=== PATIENT | female | born 1970 | race Caucasian/White ===

== ENCOUNTER 2024-07-31 10:50 | Outpatient (AMB) | payer MEDICARE, MEDICAID, SELFPAY ==
--- NOTE | 2024-07-31 10:57 | MHC.PC.OV ---
Vital Signs 07/31/24 11:34 Height 5 ft 3 in Weight 147 lb 2 oz BMI 26.1 BP 100/56 L Blood Pressure Location Rt brachial Position Sitting Respiration 16 Pulse 82 Pulse Source Pulse Oximeter Temp 98.3 F Temp Source Oral Pulse Oximetry (%) 97 Oxygen Delivery Method Room Air Intake Visit Reasons: medications, SHIPPING CLERK/ADMIN Intake Note: patient here for new patient visit Call Center Agent Required: No Is last menstrual period known: No Post menopausal: No Patient : No Allergies ibuprofen Allergy (Severe, Verified 07/31/24 11:50) Anaphylaxis tramadol [From Ultram] Allergy (Severe, Verified 07/31/24 11:50) Anaphylaxis vancomicyn Allergy (Intermediate, Uncoded 07/31/24 11:50) Anaphylaxis Medication List - Last Reviewed 07/31/24 by Carol Santoyo MA albuterol sulfate 90 mcg/actuation 2 puffs inhalation Q6H PRN aspirin 81 mg PO DAILY atorvastatin 40 mg PO DAILY cholecalciferol (vitamin D3) 5,000 mcg PO ONCE coenzyme Q10 (CoQ-10) 200 mg PO DAILY erenumab-aooe (Aimovig Autoinjector) 140 mg subcut fluoxetine (Prozac) 20 mg PO DAILY gabapentin 100 mg PO BID melatonin 10 mg PO BEDTIME PRN ondansetron 4 mg PO .prn tirzepatide (Mounjaro) 2.5 mg subcut QWEEK Tobacco use date assessed: 07/31/24 Dental Screening Dental Screen Date: 07/31/24 Did you have a dental visit in the last 12 months?: No Did you have a dental problem in the last 6 months where you did not have access to dental care?: No Was dental information given to patient?: No (no teeth) HPI HPI Comments History of Present Illness Details 54-year-old female, accompanied by her , presents to [facility]. She admits to taking her medications as prescribed without adverse reactions. However, she ran out of fluoxetine and varylar a month ago. Prior PCP? - [facility] Last office visit/CPE/labs - 2 monhs ago. She requests new blood work as recent labs not available and having difficulty tracing results Acute issue(s) -She reports anxiety and depressive symptoms which has been ongoing for the past 2 weeks. She attributes her symptoms to her father recently been on hospice and her cat dying recently. She reports passive SI. She ran out of fluoxetine and varylar a month ago. She is followed by a therapist weekly. She has the contact information for crisis. Past Medical History - Asthma, prediabetes, POTS, fibromyalgia, arthritis multiple joints, astigmatism, myopia, hyperopia, cataract, vitamin d deficiency, HLD, IBS, alcoholism, anxiety, depression, bipolar 1 disorder Surgical History - Appendectomy, cholecystectomy, right knee surgery, partial hysterectomy (no cervix) Family History - Dad: Asthma, cardiovascular disease, diabetes, alcohol abuse, substance abuse - PGM: Diabetes - MGF: Alcohol abuse Social History - Nonsmoker. Does not vape. Does not drink alcohol, sober for almost 7 years. Denies recreational drug use. - Has been making healthy dietary choices. Not active and does not exercise. Difficulty falling asleep and maintaining sleep - attributes to fibromyalgia, melatonin helps for sleep and gabapentin helps for fibromyalgia. Health maintenance - Last eye exam was with [facility] a year ago. She will schedule a follow up for eye exam. She will sign a release for her PCP to obtain her ophthalmology record - Last dental visit was over 20-30 years ago; encouraged to schedule an appointment with his dentist for routine dental care. - Last tetanus vaccine was 2 years ago. Record not currently available - Has not been vaccinated for the flu this season; declines vaccination - Last pap smear test was a year ago with former PCP: normal. Record not currently available. Would not continue to have pap smear test due to partial hysterectomy - Last mammogram was 6 months at [facility]: Has a follow up mammogram and ultrasound in 08/17/2024 - She has never had a colonoscopy. Requests referral for a colonoscopy at [facility] OP therapist [facility] Medical History (Updated 07/31/24 @ 14:36 by Tom Elliott CNP) Alcoholism Bipolar 1 disorder Depression Anxiety IBS (irritable bowel syndrome) Arthritis POTS (postural orthostatic tachycardia syndrome) Asthma Surgical History (Updated 07/31/24 @ 11:18 by Carol Santoyo MA) Hx of appendectomy History of cholecystectomy History of left knee surgery Family History (Updated 07/31/24 @ 11:34 by Carol Santoyo MA) Father Asthma Diabetes Cardiovascular disease Alcohol abuse FH: mental illness Substance abuse Paternal Grandmother Diabetes Maternal Grandfather Alcohol abuse Social History (Updated 07/31/24 @ 11:34 by Carol Santoyo MA) Housing: Other (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 1. Little interest or pleasure in doing things: more than half the days 2. Feeling down, depressed, or hopeless: more than half the days 3. Trouble falling or staying asleep, or sleeping too much: several days 4. Feeling tired or having little energy: several days 5. Poor appetite or overeating: more than half the days 6. Feeling bad about yourself - or that you are a failure or have let yourself or your family down: several days 7. Trouble concentrating on things, such as reading the newspaper or watching television: more than half the days 8. Moving or speaking so slowly that other people could have noticed. Or the opposite - being so fidgety or restless that you have been moving around a lot more than usual: several days 9. Thoughts that you would be better off or of hurting yourself in some way: several days Total score: 13 Depression Screening Interpretation: Positive Depression Screening Follow-up: Existing condition and In treatment Depression Screening Done: Yes 66808 - PHQ-9 Billing: Yes Source: Developed by Drs. Rg Ge, Kanchan Talbert, Chris Schuler and colleagues, with an educational usha from [employer]. Thrive Questionnaire Date Thrive assessed: 07/31/24 I am a: Patient What is your living situation today?: I have a steady place to live Within the past 12 months, did the food you bought not last and you didn't have the money to get more?: Never true Within the past 12 months, did you worry whether your food would run out before you got money to buy more?: Never true Do you have trouble paying for medicines?: No Do you have trouble getting transportation to medical appointments?: No Do you have trouble paying your heating and electricity bill?: No Do you have trouble taking care of your child, family member or friend?: No Do you have trouble with day-to-day activities such as bathing, preparing meals, shopping, managing finances, etc.?: No Are you currently unemployed and looking for a job?: No Are you interested in more education?: No Please select the resources that you would like help with: None Currently or been in a relationship where the following occur: No concerns reported THRIVE Score: 0 AUDIT C Alcohol Use Questionnaire (AUDIT-C) 1. How often do you have a drink containing alcohol?: Never 3. How often do you have six or more drinks on one occasion?: Never Total Score: 0 Score Reviewed/Action Taken: Yes DAYAN-7 AMB Questionnaire DAYAN-7 Date DAYAN - 7 assessed: 07/31/24 Feeling nervous, anxious, or on edge: 1 = Several days Not being able to stop or control worryin = Several days Worrying too much about different things: 1 = Several days Trouble relaxin = Several days Being so restless that it is hard to sit still: 1 = Several days Becoming easily annoyed or irritable: 0 = Not at all Feeling afraid as if something awful might happen: 1 = Several days Total DAYAN-7 score (0-4 normal; 5-9 mild; 10-14 moderate; 15-21 severe): 6 Source: Developed by Drs. Rg Ge, Kanchan Talbert, Chris Schuler and colleagues, with an educational usha from [employer]. DAYAN-7 Assessment Billing DAYAN-7 Assessment Tool: DAYAN-7 Assessment 40437 ACT Questionnaire In the past 4 weeks, how much of the time did your asthma keep you from getting as much done at work, school or at home?: None of the time During the past 4 weeks, how often have you had shortness of breath?: Not at all During the past 4 weeks, how often did your asthma symptoms wake you up at night or earlier than usual in the morning?: Not at all During the past 4 weeks, how often have you had to use your rescue inhaler or nebulizer medication?: Not at all How would you rate your asthma control during the past 4 weeks?: Completely controlled ACT Interpretation: Negative Score: 25 Review of Systems Const Details: Const Denies chills, Denies fatigue, Denies fever(s), Denies headache(s) and Denies weakness ENT Denies dizziness and Denies headache(s) Card Denies chest pain, Denies lightheadedness, Denies dyspnea and Denies other (Palpitations) Resp Denies cough, Denies dyspnea, Denies wheezing and Denies other ( shortness of breath) GI Denies abdominal pain, Denies melena, Denies hematochezia, Denies change in bowel habits, Denies dyspepsia and Denies nausea Denies hematuria and Denies dysuria Musc Reports generalized pain, Denies abnormal gait, Denies numbness and Denies tingling Skin/Breast Denies rash, Denies unusual bruising and Denies wounds Neuro Denies abnormal gait, Denies dizziness, Denies headache(s), Denies memory loss, Denies numbness, Denies Sensory deficit (Neuro), Denies tingling and Denies weakness Psych Reports anxiety, Reports depression, Denies memory loss Endo Denies cold intolerance, Denies fatigue, Denies heat intolerance, Denies polydipsia and Denies polyuria Aller/Immun Denies wheezing Physical exam (Primary Care) Vital Signs: Last Vital Signs Temp 98.3 F 07/31/24 11:34 Pulse 82 07/31/24 11:34 Resp 16 07/31/24 11:34 BP 100/56 L 07/31/24 11:34 Pulse Ox 97 07/31/24 11:34 Oxygen Delivery Method Room Air 07/31/24 11:34 BMI result Body Mass Index 26.1 Tobacco/Smoking Status: Tobacco use Status Tobacco use date assessed 07/31/24 07/31/24 11:38 Patient Tobacco Use Status Never used Tobacco 07/31/24 11:38 e-Cigarette/Vaping Use Never Used 07/31/24 11:38 PHQ-9: PHQ-9 Score PHQ-9: Total score 13 07/31/24 12:51 Depression Screening Interpretation: Positive Depression Screening Follow-up: Existing condition and In treatment Thrive Assessment: Date of Thrive Assessment Date Thrive assessed 07/31/24 07/31/24 10:59 Currently or been in a relationship where the following occur: No concerns reported Const Other: General: no acute distress and well developed Nutritional Appearance: well nourished Orientation/consciousness: patient oriented x3 HENMT Head: Yes normocephalic and Yes atraumatic mouth: Edentulous (wears upper denture) Eyes General: appearance normal, both eyes and all related structures Pupils: Equal, round and reactive pupils present EOM: EOMs intact bilaterally Resp Effort & Inspection: normal respiratory effort Auscultation: clear to auscultation bilaterally Cardio Rate: regular rate Rhythm: regular rhythm Heart sounds: S1 normal heart sound present, S2 normal heart sound present, no gallops, no murmurs and no rubs GI Palpation (GI): No Abdominal aortic bruit present, Soft to palpation, nontender, No hepatosplenomegaly present and No Rebound tenderness present Auscultation: normal bowel sounds General: Yes no CVA tenderness Back/Spine/Pelvis Back: no CVA tenderness Cervical Spine: cervical ROM normal and No Cervical spine tenderness Thoracic/Lumbar Spine: thoraco-lumbar ROM normal, No pain with thoraco-lumbar ROM, No thoracic spinal tenderness and No lumbar spinal tenderness Extrem General: Yes normal to inspection, No edema and No calf tenderness Skin General: warm and dry. Normal skin color. Normal skin turgor Lesions: no lesions Rashes: no rashes Trauma: no lacerations or abrasions Wounds: no wounds Nails: normal Neuro General: patient oriented x3, gait normal and no focal neuro deficit Cranial nerves: Yes Equal, round and reactive pupils present Cognition (Neuro): normal cognition Gait exam (Neuro): Normal gait present Sensory Exam: No Sensory deficit (Neuro) Psych Appearance: grossly normal Affect: Blunted affect Attitude: cooperative Thought process: Normal thought process present Coding Level of Care Code New Pt Level 4 (12240) Diagnoses Asthma J45.909 Anxiety F41.9 Depression F32.A Bipolar 1 disorder F31.9 Prediabetes R73.03 Colon cancer screening Z12.11 Sleep disturbance G47.9 Fibromyalgia M79.7 Laboratory tests ordered as part of a complete physical exam (CPE) Z00.00 Additional Codes Asthma Control Questionnaire - ACT Interpretation: Negative ([id number]) DAYAN-7 Assessment Billing - DAYAN-7 Assessment Tool: DAYAN-7 Assessment 65120 ([id number]) PHQ-9 - 29401 - PHQ-9 Billing: Yes ([id number]) Time Spent (min) 75 Assessment & Plan Assessment & Plan (1) Asthma: Code(s): J45.909 - Unspecified asthma, uncomplicated Category: Medical Plan: Controlled. Continue current treatment regimen. (2) Anxiety: Code(s): F41.9 - Anxiety disorder, unspecified Category: Medical Plan: She reports anxiety and depressive symptoms which has been ongoing for the past 2 weeks. She attributes her symptoms to her father recently been on hospice and her cat dying recently. She reports passive SI. She ran out of fluoxetine and varylar a month ago. She is followed by a therapist weekly. She has the contact information for crisis. Affect is blunted. PHQ-9 and DAYAN-7 scores revealed moderate depression and mild anxiety respectively. The MA called the pharmacy and reconciled the patient's medications. She was informed that the last time patient's picked up 30 day supply of Varylar 3 mg daily was in May 2024 with no refill and Prozac 20 mg daily was last picked up in February 2024, 90 day supply with no refill. Fluoxetine 20 mg daily ordered; advised to take as prescribed. Instructed on the risks, benefits, and potential adverse reactions of the medication. Routine exercise encouraged. Follow-up in 2 weeks or sooner with worsening or new symptoms. Verbalized understanding and agreed with treatment plan. (3) Depression: Code(s): F32.A - Depression, unspecified Category: Medical Plan: Plan as above. (4) Bipolar 1 disorder: Code(s): F31.9 - Bipolar disorder, unspecified Category: Medical Plan: Plan as above. (5) Prediabetes: Code(s): R73.03 - Prediabetes Category: Medical Plan: She notes that she is on Mounjaro 2.5 mg weekly The MA verified from the pharmacy that the patient last picked up 28 day supply of Mounjaro 2.5 mg weekly in April 2024. Will discontinue Mounjaro. Will check A1c and make changes as needed. Healthy diet, including low carbs encouraged. Follow-up as planned. Verbalized understanding and agreed with the plan. (6) Colon cancer screening: Code(s): Z12.11 - Encounter for screening for malignant neoplasm of colon Category: Medical Plan: She has never had a colonoscopy. Request referral for a colonoscopy to [facility]; referral sent. (7) Sleep disturbance: Code(s): G47.9 - Sleep disorder, unspecified Category: Medical Plan: Difficulty falling asleep and maintaining sleep - attributes to fibromyalgia, melatonin helps for sleep and gabapentin helps for fibromyalgia. Denies snoring. Instructed on sleep hygiene. Continue current treatment regimen. Follow-up with worsening or new symptoms. Verbalized understanding and agreed with the plan. (8) Fibromyalgia: Code(s): M79.7 - Fibromyalgia Category: Medical Plan: Reports generalized pain. Gabapentin as prescribed. Follow-up with worsening or new symptoms. Verbalized understanding and agreed with the plan. (9) Laboratory tests ordered as part of a complete physical exam (CPE): Code(s): Z00.00 - Encounter for general adult medical examination without abnormal findings Category: Medical Plan: Fasting labs ordered as part of a complete physical exam. Advised to fast for at least 10 hours before getting labs drawn. May drink water Verbalized understanding and agreed with treatment plan. Plan Total time for this visit was 75 minutes. This include 55 minutes with patients doing physical exam and chronic disease management/treatment, and 20 minutes reviewing, coordinating plan of care, and documenting. Orders: Orders Lipid Panel 07/31/24 Z.00 - Encounter for general adult medical examination without abnormal findings Microalbumin, Random (w Creat) 07/31/24 Z.00 - Encounter for general adult medical examination without abnormal findings Complete Blood Count Auto Diff 07/31/24 Z00.00 - Encounter for general adult medical examination without abnormal findings Comprehensive Allred. Panel Fast 07/31/24 Z00.00 - Encounter for general adult medical examination without abnormal findings TSH reflex Free T4 07/31/24 Z00.00 - Encounter for general adult medical examination without abnormal findings UA CC w/rflx Micro + Cult 07/31/24 Z. - Encounter for general adult medical examination without abnormal findings Vitamin D 25-OH Total 07/31/24 Z00.00 - Encounter for general adult medical examination without abnormal findings Hemoglobin A1c 07/31/24 R73.03 - Prediabetes Referrals Gastroenterology Referral Z12.11 - Encounter for screening for malignant neoplasm of colon Medications: New fluoxetine (Prozac) 20 mg PO DAILY 30 days 30 caps 3RF gabapentin 100 mg PO BID 30 days 60 caps 3RF
[2024-07-31 11:34] VITALS: BP 100/56; PULSE 82; RESP 16; TEMP 36.8; O2SAT 97; BMI 26.1
--- OUTSIDE RECORDS SUMMARY | 2024-07-31 12:20 | XMS_ITS | Data Portability ---
Author Organization [facility], [facility] Address [address] [place] [address] Assessment No assessment recorded. Plan of Treatment Reminders Order Date Submit Date Provider Last Modified By Organization Details Last Modified Time Details Appointments None record ed. Lab None record ed. Referral None record ed. Procedures None record ed. Surgeries None record ed. Imaging None record ed. Medication Orders None record ed. Patient TargetsNo targets recorded. Patient InstructionsNo instructions recorded. Reason for Referral None Reported. Results Created Date Observation Date Name Description Value Unit Range Abnormal Flag Note LastModifiedBy Organization Detail LastModifiedTime Result Notes None recorded. Procedures Surgical History Date Name Laterality Status Provider Name and Address Organization Details Recorded Time 5 Ryan - Colonoscopy completed Daniel Davis MD [address] [place] [address], [id number], [facility] 06/01/2014 12:15:08 Imaging Results None recorded. Procedure Notes None recorded. Medical Equipment None Reported. Vitals None Recorded Social History None recorded. Functional Status None recorded. Mental Status None recorded. Family History Nothing Reported. Medical History No medical history recorded. Gynecological HistoryNo gynecological history recorded. Obstetrics History GPAL:G 0 P 0 0 0 0 Past Encounters Encounter ID Performer Location Encounter Start Date Encounter Closed Date Diagnosis/Indication Diagnosis SNOMED-CT Code Diagnosis ICD10 Code Diagnosis Note [id number] Daniel Davis MD [facility], [address] [address] 06/01/2014 10:27:31 06/01/2014 14:27:54 Health Concerns Section Related Observation LastModified by Organization Detai ls LastModified Time None Recorded Concern Status LastModified by Organization Details LastModified Time None Recorded Advance Directives Directive None Recorded Payers Insurance Date Sequence Insurance Name Policy Number Policy Adler Covered Member ID Adler Member ID Guarantor Name 10/19/2014 1 [facility] (HMO) [id number] Thais Donato [id number] Thais Donato 10/19/2014 2 [place] [facility] Thais Donato [id number] Thais Donato OBGyn Episode No OBEpisode recorded.
== END 2024-07-31 12:12 | disposition home or self-care (01) ==
LOC: HO.HMCFM 10:52
PROVIDERS: PCP Nurse Practitioner Family; Visit Provider Nurse Practitioner Family
DX: J45.909 Unspecified asthma, uncomplicated (principal); F41.9 Anxiety disorder, unspecified; F32.A Depression, unspecified; F31.9 Bipolar disorder, unspecified; R73.03 Prediabetes; Z12.11 Encounter for screening for malignant neoplasm of colon; G47.9 Sleep disorder, unspecified; M79.7 Fibromyalgia; Z00.00 Encounter for general adult medical examination without abnormal findings

== ENCOUNTER → 2024-07-31 10:50 | Outpatient (BNVA) | payer MEDICARE, MEDICAID, SELFPAY | PROVIDERS: PCP Nurse Practitioner Family; Visit Provider Nurse Practitioner Family | DX: J45.909 Unspecified asthma, uncomplicated (principal); F41.9 Anxiety disorder, unspecified; F32.A Depression, unspecified; R73.03 Prediabetes; G47.9 Sleep disorder, unspecified; M79.7 Fibromyalgia | CPT/HCPCS: 96127; 96160; 99202 ==

== ENCOUNTER 2024-08-01 08:27 | Outpatient (REF) | payer MEDICARE, MEDICAID, SELFPAY ==
[2024-08-01 11:43] LABS: Appearance Urine Clear; Color Urine Yellow; Glucose Urine UA Negative (Negative); Leukocyte Esterase Urine Moderate (2+) (Negative); Nitrite Urine Negative (Negative); PH 7.5 (5.0-9.0); UMIC TRIGGER UACC YES; Urine Blood Negative (Negative); Urine Ketones Negative (Negative); Urine Protein Negative (Neg-Trace)
[2024-08-01 11:49] LABS: Bacteria Urine None Seen (None Seen); Hyaline Casts Urine 0-2 /LPF (0-2); MANUAL DIFF FLAG NO; RBC Urine 0-2 /HPF (0-2); Squamous Epithelial Cell Urine 0-2 /HPF (0-2); UACC Culture Trigger YES
[2024-08-01 11:52] LABS: Basophils Percent Auto 0.7 % (0-2); Eosinophils Absolute Auto 0.2 X10*3/uL (0.0-0.4); Eosinophils Percent Auto 3.6 % (0-4); Hematocrit 45.6 % (37.0-47.0); Hemoglobin 14.8 g/dl (12.0-16.0); Imm Gran Abs Auto 0.01 X10*3/uL (0.00-0.03); Imm Gran Pct Auto 0.2 % (0.0-0.4); Lymphocytes Absolute Auto 1.6 X10*3/uL (1.2-4.9); Lymphocytes Percent Auto 36.4 % (20-40); Mean Corpuscular HGB Conc 32.5 g/dl (31.0-35.0); Mean Corpuscular Hemoglobin 29.7 pg (27.0-33.0); Mean Corpuscular Volume 91.6 fL (80.0-98.0); Mean Platelet Volume 11.4 fL (9.4-12.3); Monocytes Absolute Auto 0.3 X10*3/uL (0.1-1.2); Monocytes Percent Auto 7.5 % (2-11); Neutrophils Absolute Auto 2.3 x10*3/uL (2.0-8.3); Neutrophils Percent Auto 51.6 % (45-73); Platelet Count 200 X10*3/uL (160-400); Red Blood Count 4.98 X10*6/uL (4.20-5.50); White Blood Count 4.4 X10*3/uL (4.8-10.8)
[2024-08-01 12:13] LABS: Estimated Average Glucose 91 mg/dL; Hemoglobin A1c % 4.8 % (<6.0); Total Hemoglobin (HGBA1C) 3913.5006 umol/L
[2024-08-01 12:19] LABS: Alanine Aminotransferase 74 U/L (0-31); Albumin Level 3.7 g/dL (3.5-5.0); Alkaline Phosphatase 61 U/L (39-117); Anion Gap 12 (12-20); Aspartate Amino Transferase 47 U/L (5-31); Bilirubin Total 0.7 mg/dL (0.0-1.0); Blood Urea Nitrogen 11 mg/dL (9-16); Calcium 9.4 mg/dL (8.4-10.2); Carbon Dioxide 24 mmol/L (22-29); Chloride 111 mmol/L (96-108); Cholesterol 206 mg/dL (<200); Estimated Glomerular Filt Rate > 60; Glucose Fasting 81 mg/dL (60-99); HDL Cholesterol 61 mg/dL (>40); LDL Cholesterol Calculated 129 mg/dL (<100); Potassium 4.3 mmol/L (3.3-5.1); Sodium 143 mmol/L (135-145); Total Protein 6.2 g/dL (6.5-8.0); Triglycerides 82 mg/dL (<150)
[2024-08-01 12:29] LABS: Creatinine Urine 43.57 mg/dL; Microalbumin Urine < 5.0 mg/L
[2024-08-01 12:34] LABS: TSH reflex Free T4 1.21 uIU/mL (0.32-4.0); Vitamin D 25-OH Total 60.4 ng/mL (>30)
== END 2024-08-01 08:28 | disposition home or self-care (01) ==
LOC: HO.WFDLDS 08:27
PROVIDERS: Visit Provider Nurse Practitioner Family
DX: Z00.00 Encounter for general adult medical examination without abnormal findings (principal); R73.03 Prediabetes; Z13.6 Encounter for screening for cardiovascular disorders
CPT/HCPCS: 36415; 80053; 80061; 81001; 82043; 82306; 82570; 83036; 84443; 85025; 87086

== ENCOUNTER 2024-08-29 08:54 | Outpatient (AMB) | payer MEDICARE, MEDICAID, SELFPAY ==
--- NOTE | 2024-08-29 08:58 | MHC.PC.OV ---
Vital Signs 08/29/24 09:03 Height 5 ft 3 in Weight 158 lb 2 oz BMI 28.0 BP 118/58 L Blood Pressure Location Lt brachial Position Sitting Respiration 16 Pulse 63 Pulse Source Pulse Oximeter Temp 98.1 F Temp Source Oral Pulse Oximetry (%) 99 Oxygen Delivery Method Room Air Intake Visit Reasons: 2 wks anxiety, depression, Bipolar, labs review Intake Note: patient here for 2 wks follow up on anxiety, depression, bipolar and lab review. Medical Terminologist Required: No Is last menstrual period known: No Post menopausal: No Patient : No Allergies ibuprofen Allergy (Severe, Verified 08/29/24 09:12) Anaphylaxis tramadol (From Ultram) Allergy (Severe, Verified 08/29/24 09:12) Anaphylaxis vancomicyn Allergy (Intermediate, Uncoded 08/29/24 09:12) Anaphylaxis Medication List - Last Reconciled 08/29/24 by Tom Elliott CNP albuterol sulfate 90 mcg/actuation 2 puffs inhalation Q6H PRN aspirin 81 mg PO DAILY atorvastatin 40 mg PO DAILY cariprazine (Vraylar) 3 mg PO DAILY 30 days cholecalciferol (vitamin D3) 5,000 mcg PO ONCE coenzyme Q10 (CoQ-10) 200 mg PO DAILY fluoxetine (Prozac) 20 mg PO DAILY 30 days gabapentin 100 mg PO BID 30 days melatonin 10 mg PO BEDTIME PRN Tobacco use date assessed: 08/29/24 Dental Screening Dental Screen Date: 08/29/24 Did you have a dental visit in the last 12 months?: No Did you have a dental problem in the last 6 months where you did not have access to dental care?: No Was dental information given to patient?: Yes HPI HPI Comments History of Present Illness Details 54-year-old female, accompanied by her , presents for anxiety, depression, bipolar, and review of recent lab results. She admits to taking her medications as prescribed without adverse reactions. She notes that her diet have been unhealthy. She eats frozen and canned food. She is active but has not been exercise. She does not intend to avoid frozen or canned food anytime soon. She notes that that her mood is better, still off but going to be that way because her dad is in hospice. She states that her current treatment regimen is helpful. She reports passive SI without a plan. She notes that some days i'll rather not be here because i can't do some of the things i used to. She was not able to drive due to multiple TIAs; she is happy she resumed driving 2 months ago. She is able to visit her dad in hospice and also drive to her mom. She reports moderate anxiety and depressive symtpoms at this time. She denies soledad or pulmonary episodes. She denies SI/HI/AH/VH. [facility] Medical History (Updated 08/29/24 @ 09:09 by Tom Elliott CNP) Alcoholism Bipolar 1 disorder Depression Anxiety IBS (irritable bowel syndrome) Arthritis POTS (postural orthostatic tachycardia syndrome) Asthma Surgical History (Updated 07/31/24 @ 11:18 by Carol Santoyo MA) Hx of appendectomy History of cholecystectomy History of left knee surgery Family History (Updated 07/31/24 @ 11:34 by Carol Santoyo MA) Father Asthma Diabetes Cardiovascular disease Alcohol abuse FH: mental illness Substance abuse Paternal Grandmother Diabetes Maternal Grandfather Alcohol abuse Social History (Updated 07/31/24 @ 11:34 by Carol Santoyo MA) Housing: Other (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 1. Little interest or pleasure in doing things: nearly every day 2. Feeling down, depressed, or hopeless: nearly every day 3. Trouble falling or staying asleep, or sleeping too much: several days 4. Feeling tired or having little energy: more than half the days 5. Poor appetite or overeating: nearly every day 6. Feeling bad about yourself - or that you are a failure or have let yourself or your family down: nearly every day 7. Trouble concentrating on things, such as reading the newspaper or watching television: nearly every day 8. Moving or speaking so slowly that other people could have noticed. Or the opposite - being so fidgety or restless that you have been moving around a lot more than usual: several days 9. Thoughts that you would be better off or of hurting yourself in some way: several days Total score: 20 Depression Screening Interpretation: Positive Depression Screening Follow-up: Existing condition, In treatment and New Medication prescribed Depression Screening Done: Yes 62623 - PHQ-9 Billing: Yes Source: Developed by Drs. Rg Ge, Kanchan Talbert, Chris Schuler and colleagues, with an educational usha from [employer]. Thrive Questionnaire Date Thrive assessed: 07/24/24 I am a: Patient What is your living situation today?: I have a steady place to live Within the past 12 months, did the food you bought not last and you didn't have the money to get more?: Never true Within the past 12 months, did you worry whether your food would run out before you got money to buy more?: Never true Do you have trouble paying for medicines?: No Do you have trouble getting transportation to medical appointments?: No Do you have trouble paying your heating and electricity bill?: No Do you have trouble taking care of your child, family member or friend?: No Do you have trouble with day-to-day activities such as bathing, preparing meals, shopping, managing finances, etc.?: No Are you currently unemployed and looking for a job?: No Are you interested in more education?: No Please select the resources that you would like help with: None Currently or been in a relationship where the following occur: No concerns reported THRIVE Score: 0 DAYAN-7 AMB Questionnaire DAYAN-7 Date DAYAN - 7 assessed: 08/29/24 Feeling nervous, anxious, or on edge: 3 = Nearly every day Not being able to stop or control worryin = More than half the days Worrying too much about different things: 2 = More than half the days Trouble relaxin = More than half the days Being so restless that it is hard to sit still: 3 = Nearly every day Becoming easily annoyed or irritable: 2 = More than half the days Feeling afraid as if something awful might happen: 2 = More than half the days Total DAYAN-7 score (0-4 normal; 5-9 mild; 10-14 moderate; 15-21 severe): 16 Source: Developed by Drs. Rg Ge, Kanchan Talbert, Chris Schuler and colleagues, with an educational usha from [employer]. DAYAN-7 Assessment Billing DAYAN-7 Assessment Tool: DAYAN-7 Assessment 94879 Review of Systems Const Details: Const Denies chills, Denies fatigue, Denies fever(s), Denies headache(s) and Denies weakness ENT Denies dizziness and Denies headache(s) Card Denies chest pain, Denies lightheadedness, Denies dyspnea and Denies other (Palpitations) Resp Denies cough, Denies dyspnea, Denies wheezing and Denies other ( shortness of breath) GI Denies abdominal pain, Denies melena, Denies hematochezia, Denies change in bowel habits, Denies dyspepsia and Denies nausea Denies hematuria and Denies dysuria Musc Denies abnormal gait, Denies myalgias, Denies arthralgias, Denies numbness and Denies tingling Skin/Breast Denies rash, Denies unusual bruising and Denies wounds Neuro Denies abnormal gait, Denies dizziness, Denies headache(s), Denies memory loss, Denies numbness, Denies Sensory deficit (Neuro), Denies tingling and Denies weakness Psych Reports anxiety, Denies depression, Denies memory loss Endo Denies cold intolerance, Denies fatigue, Denies heat intolerance, Denies polydipsia and Denies polyuria Aller/Immun Denies wheezing Physical exam (Primary Care) BMI result Body Mass Index 28.0 Tobacco/Smoking Status: Tobacco use Status Tobacco use date assessed 07/31/24 08/29/24 09:01 Patient Tobacco Use Status Never used Tobacco 08/29/24 09:01 e-Cigarette/Vaping Use Never Used 08/29/24 09:01 Depression Screening Interpretation: Positive Depression Screening Follow-up: Existing condition, In treatment and New Medication prescribed Thrive Assessment: Date of Thrive Assessment Date Thrive assessed 07/24/24 08/29/24 09:01 Currently or been in a relationship where the following occur: No concerns reported Const Other: General: no acute distress and well developed Nutritional Appearance: well nourished Orientation/consciousness: patient oriented x3 HENMT Head: Yes normocephalic and Yes atraumatic Eyes General: appearance normal, both eyes and all related structures Pupils: Equal, round and reactive pupils present EOM: EOMs intact bilaterally Resp Effort & Inspection: normal respiratory effort Auscultation: clear to auscultation bilaterally Cardio Rate: regular rate Rhythm: regular rhythm Heart sounds: S1 normal heart sound present, S2 normal heart sound present, no gallops, no murmurs and no rubs GI Palpation (GI): No Abdominal aortic bruit present, Soft to palpation, nontender, No hepatosplenomegaly present and No Rebound tenderness present Auscultation: normal bowel sounds General: Yes no CVA tenderness Back/Spine/Pelvis Back: no CVA tenderness Cervical Spine: cervical ROM normal and No Cervical spine tenderness Thoracic/Lumbar Spine: thoraco-lumbar ROM normal, No pain with thoraco-lumbar ROM, No thoracic spinal tenderness and No lumbar spinal tenderness Extrem General: Yes normal to inspection, No edema and No calf tenderness Skin General: warm and dry. Normal skin color. Normal skin turgor Neuro General: patient oriented x3, gait normal and no focal neuro deficit Cranial nerves: Yes Equal, round and reactive pupils present Cognition (Neuro): normal cognition Gait exam (Neuro): Normal gait present Sensory Exam: No Sensory deficit (Neuro) Psych Appearance: grossly normal Mood: better Affect: Constricted Attitude: cooperative Thought process: Normal thought process present Coding Level of Care Code Est Pt Level 4 (70755) Diagnoses Anxiety F41.9 Depression F32.A Bipolar 1 disorder F31.9 Hyperlipidemia E78.5 Transaminitis R74.01 Additional Codes PHQ-9 - 64410 - PHQ-9 Billing: Yes ([id number]) DAYAN-7 Assessment Billing - DAYAN-7 Assessment Tool: DAYAN-7 Assessment 90375 ([id number]) Assessment & Plan Assessment & Plan (1) Anxiety: Code(s): F41.9 - Anxiety disorder, unspecified Category: Medical Plan: She notes that that her mood is better, still off but going to be that way because her dad is in hospice. She states that her current treatment regimen is helpful. She reports passive SI without a plan. She notes that some days i'll rather not be here because i can't do some of the things i used to. She was not able to drive due to multiple TIAs; she is happy she resumed driving 2 months ago. She is able to visit her dad in hospice and also drive to her mom. She reports moderate anxiety and depressive symtpoms at this time. She denies soledad or hypomania episodes. She denies SI/HI/AH/VH. PHQ-9 and DAYAN-7 scores revealed severe depression and anxiety. Hydroxyzine 25 mg 3 times daily as needed ordered to target anxiety; advised to take as needed. Instructed on the risks, benefits, and potential adverse reactions of the medication. Continue to take fluoxetine and Vraylar as prescribed. Routine exercise encouraged. Follow-up in 3 months or sooner with worsening or new symptoms. Verbalized understanding and agreed with the plan. (2) Depression: Code(s): F32.A - Depression, unspecified Category: Medical Plan: Plan as above. (3) Bipolar 1 disorder: Code(s): F31.9 - Bipolar disorder, unspecified Category: Medical Plan: Plan as above. (4) Hyperlipidemia: Code(s): E78.5 - Hyperlipidemia, unspecified Category: Medical Plan: Recent total cholesterol and LDL levels are elevated, 206 and 129 respectively. She notes that her diet have been unhealthy. She eats frozen and canned food. She is active but has not been exercise. She does not intend to avoid frozen or canned food anytime soon. Will increase atorvastatin to 80 mg daily; advised to take as prescribed. Advised to limit foods high in saturated fat and avoid foods high in trans fat. Routine exercise encouraged. Fast for 10-12 hours, may drink water, perform lipid panel blood work 2-3 days before next visit. Follow-up in 3 months or sooner with symptoms or concerns. Verbalized understanding and agreed with the plan. (5) Transaminitis: Code(s): R74.01 - Elevation of levels of liver transaminase levels Category: Medical Plan: Recent AST and ALT levels elevated, 47 and 74 respectively. No acute symptoms. Likely fatty liver deposit due to poor diet and sedentary lifestyle. Healthy diet and routine exercise encouraged. Will recheck lipid panel in 3 months. Verbalized understanding and agreed with the plan. Orders: Orders Liver Panel 3 Months R74.01 - Elevation of levels of liver transaminase levels Lipid Panel 3 Months E78.5 - Hyperlipidemia, unspecified Medications: New atorvastatin (Lipitor) 80 mg PO BEDTIME 90 tabs 2RF 90 days hydroxyzine HCl 25 mg PO TID PRN 90 tabs 3RF anxiety
[2024-08-29 09:03] VITALS: BP 118/58; PULSE 63; RESP 16; TEMP 36.7; O2SAT 99; BMI 28.0
--- OUTSIDE RECORDS SUMMARY | 2024-08-29 09:10 | XMS_ITS | Data Portability ---
Author Organization [facility], , [facility] Address [address] [place] [address] Assessment No assessment recorded. Plan of Treatment [...] Ryan - Colonoscopy completed Daniel Davis MD [address] [place] [address], [id number], [facility] 06/01/2014 12:15:08 Imaging Results None recorded. Procedure [...] SNOMED-CT Code Diagnosis ICD10 Code Diagnosis Note [id number] Daniel Davis MD [facility], [address] [id number] 06/01/2014 10:27:31 06/01/2014 14:27:54 Health Concerns Section Related Observation LastModified by Organization Detai ls LastModified Time None Recorded Concern Status LastModified by Organization Details LastModified Time None Recorded Advance Directives Directive None Recorded Payers Insurance Date Sequence Insurance Name Policy Number Policy Adler Covered Member ID Adler Member ID Guarantor Name 10/19/2014 1 [place] [facility] [place] [id number] Thais Donato [id number] Thais Donato 10/19/2014 2 [place] [facility] Thais Donato [id number] Thais Donato OBGyn Episode No OBEpisode recorded.
== END 2024-08-29 09:24 | disposition home or self-care (01) ==
LOC: HO.HMCFM 08:55
PROVIDERS: PCP Nurse Practitioner Family; Visit Provider Nurse Practitioner Family
DX: E78.5 Hyperlipidemia, unspecified (principal); F41.9 Anxiety disorder, unspecified; F31.9 Bipolar disorder, unspecified; R74.01 Elevation of levels of liver transaminase levels

== ENCOUNTER → 2024-08-29 08:54 | Outpatient (BNVA) | payer MEDICARE, MEDICAID, SELFPAY | PROVIDERS: PCP Nurse Practitioner Family; Visit Provider Nurse Practitioner Family | DX: F41.9 Anxiety disorder, unspecified (principal); F32.A Depression, unspecified; E78.5 Hyperlipidemia, unspecified; R74.01 Elevation of levels of liver transaminase levels | CPT/HCPCS: 96127; 99212 ==

== ENCOUNTER 2024-11-07 08:08 | Outpatient (REF) | payer MEDICARE, MEDICAID, SELFPAY ==
[2024-11-07 11:39] LABS: Appearance Urine Clear; Glucose Urine UA Negative (Negative); PH 8.0 (5.0-9.0); Specific Gravity - Urine 1.010 (1.005-1.025); UMIC TRIGGER UACC YES
[2024-11-07 11:44] LABS: UACC Culture Trigger YES
[2024-11-07 13:34] LABS: Alanine Aminotransferase 88 U/L (0-31); Albumin Level 4.2 g/dL (3.5-5.0); Alkaline Phosphatase 67 U/L (39-117); Aspartate Amino Transferase 58 U/L (5-31); Cholesterol 128 mg/dL (<200); HDL Cholesterol 62 mg/dL (>40); Total Protein 6.6 g/dL (6.5-8.0); Triglycerides 66 mg/dL (<150)
== END 2024-11-07 08:09 | disposition home or self-care (01) ==
LOC: HO.WFDLDS 08:08
PROVIDERS: Visit Provider Nurse Practitioner Family
DX: R74.01 Elevation of levels of liver transaminase levels (principal); E78.5 Hyperlipidemia, unspecified
CPT/HCPCS: 36415; 80061; 80076; 81001; 87086

== ENCOUNTER 2024-12-04 08:03 | Outpatient (AMB) | payer MEDICARE, MEDICAID, SELFPAY ==
--- NOTE | 2024-12-04 08:07 | MHC.PC.OV ---
Vital Signs 12/04/24 08:14 Height 5 ft 3 in Weight 181 lb 2 oz BMI 32.1 BP 132/63 Blood Pressure Location Rt brachial Position Sitting Respiration 16 Pulse 68 Pulse Source Pulse Oximeter Temp 97.6 F Temp Source Oral Pulse Oximetry (%) 96 Oxygen Delivery Method Room Air Intake Visit Reasons: 3 mos HLD,transaminitis,anxiety,depression,bipolar Intake Note: patient here for 3 month follow up on HLD, transaminitis, anxiety, depression and bipolar Speech Pathology Supervisor Required: No Is last menstrual period known: No Post menopausal: No Patient : No Allergies ibuprofen Allergy (Severe, Verified 12/04/24 08:39) Anaphylaxis tramadol (From Ultram) Allergy (Severe, Verified 12/04/24 08:39) Anaphylaxis vancomicyn Allergy (Intermediate, Uncoded 12/04/24 08:39) Anaphylaxis Medication List - Last Reconciled 12/04/24 by Tom Elliott CNP albuterol sulfate 90 mcg/actuation 2 puffs inhalation Q6H PRN aspirin 81 mg PO DAILY atorvastatin (Lipitor) 80 mg PO BEDTIME 90 days cariprazine (Vraylar) 3 mg PO DAILY 30 days cholecalciferol (vitamin D3) 5,000 mcg PO ONCE coenzyme Q10 (CoQ-10) 200 mg PO DAILY fluoxetine (Prozac) 20 mg PO DAILY 30 days gabapentin 100 mg PO BID 30 days hydroxyzine HCl 25 mg PO TID PRN melatonin 10 mg PO BEDTIME PRN Tobacco use date assessed: 12/04/24 Dental Screening Dental Screen Date: 12/04/24 Did you have a dental visit in the last 12 months?: No Did you have a dental problem in the last 6 months where you did not have access to dental care?: No Was dental information given to patient?: Patient has dentist HPI HPI Comments History of Present Illness Details 54-year-old female, accompanied by her , presents for anxiety, depression, bipolar, hyperlipidemia, and transaminitis follow-up. She admits to taking her medications as prescribed without adverse reactions. She has been overeating lot of junk foods. She does not exercise. She notes that her mood fluctuates but good today. She sees a therapist weekly and finds it helpful. Her dad recently from chronic illness; she notes that her father passing hurts, but therapy helps. [facility] Medical History (Updated 12/04/24 @ 08:41 by Tom Elliott CNP) Alcoholism Bipolar 1 disorder Depression Anxiety IBS (irritable bowel syndrome) Arthritis POTS (postural orthostatic tachycardia syndrome) Asthma Surgical History (Updated 07/31/24 @ 11:18 by NINOSKA Singh) Hx of appendectomy History of cholecystectomy History of left knee surgery Family History (Updated 07/31/24 @ 11:34 by NINOSKA Singh) Father Asthma Diabetes Cardiovascular disease Alcohol abuse FH: mental illness Substance abuse Paternal Grandmother Diabetes Maternal Grandfather Alcohol abuse Social History (Updated 07/31/24 @ 11:34 by NINOSKA Singh) [facility]: [facility] ([facility] Patient Tobacco Use Status: Never used Tobacco e-Cigarette/Vaping Use: Never Used Second Hand Smoke Exposure: No Patient : No service: No Current occupational status: disabled Current occupational exposures/hazards: No Cognitive needs: No Hearing needs: No Vision needs: Yes Questionnaire PHQ-9 Over the last 2 weeks, how often have you been bothered by any of the following problems? 1. Little interest or pleasure in doing things: several days 2. Feeling down, depressed, or hopeless: several days 3. Trouble falling or staying asleep, or sleeping too much: several days 4. Feeling tired or having little energy: several days 5. Poor appetite or overeating: more than half the days 6. Feeling bad about yourself - or that you are a failure or have let yourself or your family down: not at all 7. Trouble concentrating on things, such as reading the newspaper or watching television: several days 8. Moving or speaking so slowly that other people could have noticed. Or the opposite - being so fidgety or restless that you have been moving around a lot more than usual: several days 9. Thoughts that you would be better off or of hurting yourself in some way: not at all Total score: 8 Depression Screening Interpretation: Positive Depression Screening Follow-up: Existing condition and In treatment Depression Screening Done: Yes 57504 - PHQ-9 Billing: Yes Source: Developed by Drs. Rg Ge, Kanchan Talbert, Chris Schuler and colleagues, with an educational usha from [employer]. Thrive Questionnaire Date Thrive assessed: 06/09/25 I am a: Patient What is your living situation today?: I have a steady place to live Within the past 12 months, did the food you bought not last and you didn't have the money to get more?: Never true Within the past 12 months, did you worry whether your food would run out before you got money to buy more?: Never true Do you have trouble paying for medicines?: No Do you have trouble getting transportation to medical appointments?: No Do you have trouble paying your heating and electricity bill?: No Do you have trouble taking care of your child, family member or friend?: No Do you have trouble with day-to-day activities such as bathing, preparing meals, shopping, managing finances, etc.?: No Are you currently unemployed and looking for a job?: No Are you interested in more education?: No Please select the resources that you would like help with: None Currently or been in a relationship where the following occur: No concerns reported THRIVE Score: 0 DAYAN-7 AMB Questionnaire DAYAN-7 Date DAYAN - 7 assessed: 12/04/24 Feeling nervous, anxious, or on edge: 1 = Several days Not being able to stop or control worryin = Several days Worrying too much about different things: 1 = Several days Trouble relaxin = Several days Being so restless that it is hard to sit still: 2 = More than half the days Becoming easily annoyed or irritable: 1 = Several days Feeling afraid as if something awful might happen: 2 = More than half the days Total DAYAN-7 score (0-4 normal; 5-9 mild; 10-14 moderate; 15-21 severe): 9 Source: Developed by Drs. Rg Ge, Kanchan Talbert, Chris Schuler and colleagues, with an educational usha from [employer]. DAYAN-7 Assessment Billing DAYAN-7 Assessment Tool: DAYAN-7 Assessment 59045 ACT Questionnaire In the past 4 weeks, how much of the time did your asthma keep you from getting as much done at work, school or at home?: None of the time During the past 4 weeks, how often have you had shortness of breath?: 1-2 times a week During the past 4 weeks, how often did your asthma symptoms wake you up at night or earlier than usual in the morning?: Not at all During the past 4 weeks, how often have you had to use your rescue inhaler or nebulizer medication?: Not at all How would you rate your asthma control during the past 4 weeks?: Well controlled Score: 23 Review of Systems Const Details: Const Denies chills, Denies fatigue, Denies fever(s), Denies headache(s) and Denies weakness ENT Denies dizziness and Denies headache(s) Card Denies chest pain, Denies lightheadedness, Denies dyspnea and Denies other (Palpitations) Resp Denies cough, Denies dyspnea, Denies wheezing and Denies other ( shortness of breath) GI Denies abdominal pain, Denies melena, Denies hematochezia, Denies change in bowel habits, Denies dyspepsia and Denies nausea Denies hematuria and Denies dysuria Musc Denies abnormal gait, Denies myalgias, Denies arthralgias, Denies numbness and Denies tingling Skin/Breast Denies rash, Denies unusual bruising and Denies wounds Neuro Denies abnormal gait, Denies dizziness, Denies headache(s), Denies memory loss, Denies numbness, Denies Sensory deficit (Neuro), Denies tingling and Denies weakness Psych Denies anxiety, Denies depression, Denies memory loss Endo Denies cold intolerance, Denies fatigue, Denies heat intolerance, Denies polydipsia and Denies polyuria Aller/Immun Denies wheezing Physical exam (Primary Care) Vital Signs: Last Vital Signs Temp 97.6 F 12/04/24 08:14 Pulse 68 12/04/24 08:14 Resp 16 12/04/24 08:14 Pulse Ox 96 12/04/24 08:14 Oxygen Delivery Method Room Air 12/04/24 08:14 BMI result Body Mass Index 32.1 Tobacco/Smoking Status: Tobacco use Status Tobacco use date assessed 12/04/24 12/04/24 08:20 Patient Tobacco Use Status Never used Tobacco 12/04/24 08:09 e-Cigarette/Vaping Use Never Used 12/04/24 08:09 PHQ-9: PHQ-9 Score PHQ-9: Total score 8 12/04/24 08:42 Depression Screening Interpretation: Positive Depression Screening Follow-up: Existing condition and In treatment Thrive Assessment: Date of Thrive Assessment Date Thrive assessed 07/24/24 12/04/24 08:09 Currently or been in a relationship where the following occur: No concerns reported Const Other: General: no acute distress and well developed Nutritional Appearance: well nourished Orientation/consciousness: patient oriented x3 HENMT Head: Yes normocephalic and Yes atraumatic Eyes General: appearance normal, both eyes and all related structures Pupils: Equal, round and reactive pupils present EOM: EOMs intact bilaterally Resp Effort & Inspection: normal respiratory effort Auscultation: clear to auscultation bilaterally Cardio Rate: regular rate Rhythm: regular rhythm Heart sounds: S1 normal heart sound present, S2 normal heart sound present, no gallops, no murmurs and no rubs GI Palpation (GI): No Abdominal aortic bruit present, Soft to palpation, nontender, No hepatosplenomegaly present and No Rebound tenderness present Auscultation: normal bowel sounds General: Yes no CVA tenderness Back/Spine/Pelvis Back: no CVA tenderness Cervical Spine: cervical ROM normal and No Cervical spine tenderness Thoracic/Lumbar Spine: thoraco-lumbar ROM normal, No pain with thoraco-lumbar ROM, No thoracic spinal tenderness and No lumbar spinal tenderness Extrem General: Yes normal to inspection, No edema and No calf tenderness Skin General: warm and dry. Normal skin color. Normal skin turgor Neuro General: patient oriented x3, gait normal and no focal neuro deficit Cranial nerves: Yes Equal, round and reactive pupils present Cognition (Neuro): normal cognition Gait exam (Neuro): Normal gait present Sensory Exam: No Sensory deficit (Neuro) Psych Appearance: grossly normal Affect: Blunted Attitude: cooperative Thought process: Normal thought process present Coding Level of Care Code Est Pt Level 3 (49178) Diagnoses Hyperlipidemia E78.5 Transaminitis R74.01 Hyperbilirubinemia E80.6 Anxiety F41.9 Depression F32.A Bipolar 1 disorder F31.9 Additional Codes DAYAN-7 Assessment Billing - DAYAN-7 Assessment Tool: DAYAN-7 Assessment 84196 ([id number]) PHQ-9 - 73472 - PHQ-9 Billing: Yes ([id number]) Assessment & Plan Assessment & Plan (1) Hyperlipidemia: Code(s): E78.5 - Hyperlipidemia, unspecified Category: Medical Plan: Recent lipid panel level was normal. Continue current treatment regimen. Will recheck lipid panel level annually or as needed. Verbalized understanding and agreed with the plan. (2) Transaminitis: Code(s): R74.01 - Elevation of levels of liver transaminase levels Category: Medical Plan: Recent AST and ALT levels are elevated, 58 and 88 respectively, previous level were 47 and 74 respectively. Recent total bilirubin and direct bilirubin elevated, 1.4 and 0.6 respectively. No acute signs or symptoms. She has been eating poorly and has not been exercising. She gained about 23 lb since her last visit. Fatty liver deposit is likely. Instructed on healthy diet/weight management and encouraged both. Liver ultrasound ordered. Follow-up with symptoms or concerns. Verbalized understanding and agreed with the plan. (3) Hyperbilirubinemia: Code(s): E80.6 - Other disorders of bilirubin metabolism Category: Medical Plan: Plan as above. (4) Anxiety: Code(s): F41.9 - Anxiety disorder, unspecified Category: Medical Plan: She notes that her mood fluctuates but good today. She sees a therapist weekly and finds it helpful. Her dad recently from chronic illness; she notes that her father passing hurts, but therapy helps. PHQ-9 and DAYAN-7 scores revealed mild depression and anxiety. Continue current treatment regimen. Routine exercise encouraged. Follow-up in 3 months or sooner with symptoms or concerns. Verbalized understanding and agreed with the plan. (5) Depression: Code(s): F32.A - Depression, unspecified Category: Medical Plan: Plan as above. (6) Bipolar 1 disorder: Code(s): F31.9 - Bipolar disorder, unspecified Category: Medical Plan: Plan as above. Orders: Orders US abdomen limited Today E80.6 - Other disorders of bilirubin metabolism, R74.01 - Elevation of levels of liver transaminase levels
[2024-12-04 08:14] VITALS: BP 132/63; PULSE 68; RESP 16; TEMP 36.4; O2SAT 96; BMI 32.1
== END 2024-12-04 08:58 | disposition home or self-care (01) ==
LOC: HO.HMCFM 08:04
PROVIDERS: PCP Nurse Practitioner Family; Visit Provider Nurse Practitioner Family
DX: E78.5 Hyperlipidemia, unspecified (principal); R74.01 Elevation of levels of liver transaminase levels; E80.6 Other disorders of bilirubin metabolism; F41.9 Anxiety disorder, unspecified; F32.A Depression, unspecified; F31.9 Bipolar disorder, unspecified

== ENCOUNTER → 2024-12-04 08:03 | Outpatient (BNVA) | payer MEDICARE, MEDICAID, SELFPAY | PROVIDERS: PCP Nurse Practitioner Family; Visit Provider Nurse Practitioner Family | DX: R74.01 Elevation of levels of liver transaminase levels (principal); F31.9 Bipolar disorder, unspecified; F41.9 Anxiety disorder, unspecified; E78.5 Hyperlipidemia, unspecified; E80.6 Other disorders of bilirubin metabolism | CPT/HCPCS: 96127; 96160; 99212 ==